=== PATIENT | female | born 1985 | race Caucasian/White ===

== ENCOUNTER 2017-03-08 16:34 | Emergency (ER) | payer MEDICAID ==
[~2017-03-08] VITALS: Ht 165.1 cm; Wt 54.4 kg
[2017-03-08 16:34] VITALS: BP 127/74
[2017-03-08] MEDS ORDERED: LORazepam 1mg tab ORAL ONE (17:15)
[2017-03-08 17:20] LABS: MEAN CORPUSCULAR HEMOGLOBIN 31.6 PG (27.0-31.0); MEAN CORPUSCULAR HGB CONC 34.1 G/DL (32.0-36.0); MEAN CORPUSCULAR VOLUME 93 FL (80-99); MEAN PLATELET VOLUME 7.9 FL (6.5-10.1); MONOCYTES % (AUTO) 6.9 % (1.0-10.0); NEUTROPHILS % (AUTO) 60.1 % (45.0-75.0); PLATELET COUNT 178 K/UL (150-450); RED BLOOD COUNT 4.16 M/UL (4.20-5.40); RED CELL DISTRIBUTION WIDTH 10.9 % (11.6-14.8); WHITE BLOOD COUNT 4.8 K/UL (4.8-10.8)
--- NOTE | 2017-03-08 17:33 | Emergency Room Report ---
History of Present Illness General Chief Complaint: Seizure Source: Patient, EMS Present Illness HPI Patient present with reports of seizure activity Patient was with friends who witnessed the tonic-clonic seizure Patient at this time is awake alert GCS 15 patient started having seizures 6 years ago has had several now over the past few years Patient is on homeopathic medication including magnesium Denies any headache at this time denies any chest pain or shortness of breath denies any back or flank pain Denies any vomiting patient is starting her menstrual cycle and has noticed some correlation with that Allergies: Coded Allergies: No Known Allergies (Unverified , 03/08/17) Patient History Past Medical History: see triage record Pertinent Family History: none Last Menstrual Period: Current Now: No Reviewed Nursing Documentation: PMH: Agreed, PSxH: Agreed Nursing Documentation-PMH Hx Seizures: Yes - Does not take anticonvulsants Review of Systems All Other Systems: negative except mentioned in HPI Physical Exam Vital Signs Date Time Temp Pulse Resp B/P (MAP) Pulse Ox O2 Delivery O2 Flow Rate FiO2 03/08/17 16:25 97.2 81 16 127/74 99 Room Air Sp02 EP Interpretation: reviewed, normal General Appearance: well appearing, no apparent distress Head: normocephalic, atraumatic Eyes: bilateral eye PERRL, bilateral eye EOMI ENT: hearing grossly normal, normal pharynx, TMs + canals normal, uvula midline Neck: full range of motion, supple, no meningismus, no bony tend Respiratory: lungs clear, normal breath sounds, no rhonchi, no respiratory distress, no retraction, no accessory muscle use Cardiovascular #1: normal peripheral pulses, regular rate, rhythm, no edema, no gallop, no JVD, no murmur Gastrointestinal: normal bowel sounds, non tender, soft, no mass, no organomegaly, non-distended, no guarding, no hernia, no pulsatile mass, no rebound Genitourinary: no CVA tenderness Musculoskeletal: normal inspection Neurologic: oriented x3, responsive, automation technologist III-XII nml as tested, motor strength/ tone normal, sensory intact Psychiatric: mood/affect normal Skin: normal color, no rash, warm/dry, palpation normal Lymphatic: normal inspection, no adenopathy Medical Decision Making Diagnostic Impression: Primary Impression: Seizure disorder ER Course Multiple differentials considered Including but not limited to neurological, neurosurgical, metabolic infectious pathology Patient has had previous CT imaging At this time is neurologically intact Patient did not have repeat imaging Baseline blood work are appropriate Patient's magnesium is also appropriate patient admission possible decreased magnesium After further observation patient continues to do well in a stable for close outpatient followup , Labs Test 03/08/17 17:00 03/08/17 18:00 White Blood Count 4.8 K/UL (4.8-10.8) Red Blood Count 4.16 M/UL (4.20-5.40) Hemoglobin 13.2 G/DL (12.0-16.0) Hematocrit 38.6 % (37.0-47.0) Mean Corpuscular Volume 93 FL (80-99) Mean Corpuscular Hemoglobin 31.6 PG (27.0-31.0) Mean Corpuscular Hemoglobin Concent 34.1 G/DL (32.0-36.0) Red Cell Distribution Width 10.9 % (11.6-14.8) Platelet Count 178 K/UL (150-450) Mean Platelet Volume 7.9 FL (6.5-10.1) Neutrophils (%) (Auto) 60.1 % (45.0-75.0) Lymphocytes (%) (Auto) 31.0 % (20.0-45.0) Monocytes (%) (Auto) 6.9 % (1.0-10.0) Eosinophils (%) (Auto) 1.0 % (0.0-3.0) Basophils (%) (Auto) 1.0 % (0.0-2.0) Sodium Level 139 MMOL/L (136-145) Potassium Level 3.7 MMOL/L (3.5-5.1) Chloride Level 103 MMOL/L (98-107) Carbon Dioxide Level 28 MMOL/L (21-32) Anion Gap 9 mmol/L (5-15) Blood Urea Nitrogen 18 mg/dL (7-18) Creatinine 0.9 MG/DL (0.55-1.30) Estimat Glomerular Filtration Rate > 60 mL/min (>60) Glucose Level 102 MG/DL (74-106) Calcium Level 7.9 MG/DL (8.5-10.1) Magnesium Level 1.9 MG/DL (1.8-2.4) Urine HCG, Qualitative Negative Last Vital Signs Date Time Temp Pulse Resp B/P (MAP) Pulse Ox O2 Delivery O2 Flow Rate FiO2 12/26/17 16:45 83 16 Room Air 03/08/17 16:34 97.2 127/74 99 Status: improved Disposition: HOME, SELF-CARE Condition: Improved Additional Instructions: Patient is provided with the discharge instructions notified to follow up with primary doctor in the next 2-3 days otherwise return to the er with any worsening symptoms. Please note that this report is being documented using [email or web address] technology. This can lead to erroneous entry secondary to incorrect interpretation by the dictating instrument. SONNY ALEJANDRE D.O. Mar 08, 2017 17:33
[2017-03-08 17:36] LABS: ANION GAP 9 mmol/L (5-15); CALCIUM 7.9 MG/DL (8.5-10.1); CARBON DIOXIDE 28 MMOL/L (21-32); CHLORIDE 103 MMOL/L (98-107); CREATININE 0.9 MG/DL (0.55-1.30); GLOMERULAR FILTRATION RATE > 60 mL/min (>60); POTASSIUM 3.7 MMOL/L (3.5-5.1); SODIUM 139 MMOL/L (136-145)
[2017-03-08 18:50] VITALS: BP 104/64
[2017-03-08 19:20] VITALS: BP 115/70
[2017-03-08 20:30] VITALS: BP 110/68
[2017-03-08 20:45] VITALS: BP 110/68
== END 2017-03-08 20:45 | disposition home or self-care (01) ==
LOC: EDBD 16:34 → EMR 17:49
DX: G40.409 Other generalized epilepsy and epileptic syndromes, not intractable, without status epilepticus (principal)
CPT/HCPCS: 36415; 80048; 81025; 83735; 85025; 99283